=== PATIENT | male | born 2000 | race Caucasian/White ===

== ENCOUNTER 2018-09-23 15:59 | Emergency (ER) | payer OTHER ==
[2018-09-23 16:35] VITALS: BP 129/55
--- NOTE | 2018-09-23 17:47 | XRAY Report ---
Reason: L shoulder pain. no injury Procedure Date: 09/23/2018 Accession Number: [id number] / [id number] Procedure: XR - Shoulder 3 View LT CPT Code: FULL RESULT: EXAM: LEFT SHOULDER RADIOGRAPHY EXAM DATE: 09/23/2018 05:31 PM. CLINICAL HISTORY: L shoulder pain. no injury. COMPARISON: None. TECHNIQUE: 3 views. FINDINGS: Bones: No acute fracture. There is a bone island in the glenoid. Joints: The glenohumeral and acromioclavicular joints are preserved. Soft tissues: Unremarkable. IMPRESSION: Negative shoulder radiography. [facility]
--- NOTE | 2018-09-23 18:02 | ED Physician Documentation ---
PD HPI UPPER EXT INJURY - Stated complaint Stated Complaint: Ottoniel WALLER PX - Chief complaint Chief Complaint: Ext Problem - History obtained from History obtained from: Patient - History of Present Illness Location: Left, Shoulder Timing - onset: How many weeks ago (1) Worsened by: Moving Associated symptoms: No: Weakness, Numbness - Additonal information Additional information: The patient is a 18-year-old male presents with left shoulder pain with "popping." He denies any specific injury. He has had similar but less severe symptoms for the past few months but it is become worse during the past week. His symptoms are worse with range of motion of the left shoulder. He denies numbness or weakness. He denies neck pain. He is right-hand dominant. Review of Systems Constitutional: denies: Fever Ears: denies: Tinnitus/ringing Nose: denies: Congestion Throat: denies: Sore throat Cardiac: denies: Chest pain / pressure Respiratory: denies: Dyspnea, Cough GI: denies: Abdominal Pain, Vomiting Skin: denies: Rash Musculoskeletal: reports: Joint pain (Left shoulder.). denies: Neck pain, Back pain Neurologic: denies: Focal weakness, Numbness, Headache PD PAST MEDICAL HISTORY - Past Medical History Cardiovascular: None Respiratory: None Endocrine/Autoimmune: None - Allergies Allergies/Adverse Reactions: Allergies Allergy/AdvReac Type Severity Reaction Status Date / Time No Known Drug Allergies Allergy Verified 09/23/18 16:31 - Social History Does the pt smoke?: No PD ED PE NORMAL - Vitals Vital signs reviewed: Yes (Normal) - General General: Alert and oriented X 3, Well developed/nourished - HEENT HEENT: Atraumatic - Neck Neck: No bony TTP, No adenopathy - Cardiac Cardiac: RRR - Respiratory Respiratory: No respiratory distress, Clear bilaterally - Abdomen Abdomen: Soft, Non tender - Derm Derm: No rash - Extremities Extremities: No deformity, Other (The patient is able to sublux his left shoulder and create a popping noise when abducting it. He has full passive range of motion without tenderness. There is no point tenderness to palpation of the shoulder joint. There is no swelling or erythema. Distal neurovascular is intact.) - Neuro Neuro: Alert and oriented X 3, No motor deficit, No sensory deficit Results - Vitals Vitals: Oxygen O2 Source Room air - Rads (name of study) left shoulder Radiology: Prelim report reviewed, EMP read contemporaneously, See rad report ( Negative shoulder radiography.) PD MEDICAL DECISION MAKING - ED course Complexity details: reviewed results, re-evaluated patient, considered differential, d/w patient ED course: Patient's presentation is significant for subluxation of the left shoulder. X- ray reveals no acute osseous abnormality. Treatment in the emergency department included application of an arm sling. I discussed with the patient and his male senior client advisor the diagnosis, symptomatic treatment and orthopedic follow-up, as well as potentially worrisome signs or symptoms that should prompt reevaluation in the emergency department. Departure - Departure Disposition: 01 Home, Self Care Clinical Impression: Subluxation of left shoulder joint Qualifiers: Encounter type: initial encounter Qualified Code(s): S43.002A - Unspecified subluxation of left shoulder joint, initial encounter Condition: Stable Instructions: ED Sling Follow-Up: [facility] Taylor [Provider Group] Comments: Use the arm sling if it provides comfort. You can use Tylenol or ibuprofen if needed for discomfort. Follow-up with your primary physician within 2 weeks. Call to schedule appointment. Let pain be your guide to activity level. Return to the emergency room if you develop increasing pain or otherwise wors ening symptoms. Discharge Date/Time: 09/23/18 18:15
== END 2018-09-23 18:15 | disposition home or self-care (01) ==
LOC: ED 15:59
DX: S43.002A Unspecified subluxation of left shoulder joint, initial encounter (principal); X58.XXXA Exposure to other specified factors, initial encounter
CPT/HCPCS: 99282; 99283

== ENCOUNTER 2018-10-14 08:35 | Outpatient (CLI) | payer OTHER ==
--- NOTE | 2018-10-14 11:31 | MRI Report ---
Reason: PAIN IN LEFT SHOULDER Procedure Date: 10/14/2018 Accession Number: [id number] / [id number] Procedure: MRI - Shoulder LT W/O CPT Code: FULL RESULT: EXAM: LEFT SHOULDER MRI WITHOUT CONTRAST EXAM DATE: 10/14/2018 09:20 AM. CLINICAL HISTORY: Left shoulder pain. Popping when moving. COMPARISON: None. TECHNIQUE: Multiplanar, multisequence T1-weighted and fluid-sensitive sequences of the shoulder without contrast. Other: None. FINDINGS: Acromioclavicular Region: The acromion is type II. The acromioclavicular joint is unremarkable. Fluid in the subacromial bursa, may indicate bursitis. Glenohumeral Region: No subluxation. No effusion or loose bodies. The articular cartilage is unremarkable. Bone Marrow: No fracture, marrow edema or bone lesions. Labrum: The labrum is unremarkable on this nonarthrographic study. Musculature/Rotator Cuff: The subscapularis, supraspinatus, infraspinatus, and teres minor tendons are intact. No edema or fatty atrophy. Biceps Tendon: The long head of the biceps tendon and biceps milagros are intact. Other: The subcutaneous tissues are unremarkable. IMPRESSION: 1. Fluid in the subacromial bursa suggestive of bursitis. [facility]
== END 2018-10-14 08:36 | disposition home or self-care (01) ==
LOC: DI 08:35
PROVIDERS: ATTEND Student in an Organized Health Care Education/Training Program
DX: M25.512 Pain in left shoulder (principal)